=== PATIENT | female | born 1965 | race Caucasian/White ===

== ENCOUNTER 2016-11-19 14:11 | Emergency (ER) | payer OTHER ==
[~2016-11-19] VITALS: Ht 157.5 cm; Wt 56.0 kg
[~2016-11-19 14:11] MED LIST: ASPI81TA3 PO; CALC-176 PO; CETI-240 PO; CIPR500T4 PO; GLIM4TAB PO; HYDR-3498 PO; LEVO25TA59 PO; MTF1000T PO; OMEG-135 PO; PIOG45TA6 PO; SERT25TA83 PO; SIMV40TA2 PO
[2016-11-19 14:25] VITALS: Ht 157.5 cm; Wt 56.0 kg
[2016-11-19] MEDS ORDERED: IBUPROFEN 200 MG TAB PO ONE (16:30)
[2016-11-19] MEDS ORDERED: HYDROCODONE/APAP (5/325) TAB PO ONE (16:30)
--- NOTE | 2016-11-19 17:16 | RADRPT ---
PROCEDURE: XR Elbow. CLINICAL INDICATION: Pain. TECHNIQUE: Three views of the right elbow. COMPARISON: None available. FINDINGS: The anterior fat pad is visible, but not elevated. The posterior fat pad is not seen. The anterior humeral and radiocapitellar lines are normal. No fracture or dislocation is identified. The joint spaces are preserved. There is no significant soft tissue swelling. IMPRESSION: 1. No fracture or dislocation of the right elbow. RPTAT: HTAR .Aknit Ricketts MD, Date Time Electronically viewed and signed by .Ankit Ricketts MD, on 11/19/2016 17:16 .R/
--- NOTE | 2016-11-19 17:16 | RADRPT ---
PROCEDURE: XR Elbow. CLINICAL INDICATION: Pain. TECHNIQUE: Three views of the left elbow. COMPARISON: None available. FINDINGS: The anterior fat pad is visible, but not elevated. The posterior fat pad is not seen. The anterior humeral and radiocapitellar lines are normal. No fracture or dislocation is identified. The joint spaces are preserved. There is no significant soft tissue swelling. IMPRESSION: 1. No fracture or dislocation of the left elbow. RPTAT: HTAR .Ankit Ricketts MD, Date Time Electronically viewed and signed by .Ankit Ricketts MD, on 11/19/2016 17:15 .R/
--- NOTE | 2016-11-19 17:16 | RADRPT ---
PROCEDURE: Lumbar Spine. CLINICAL INDICATION: Back pain. TECHNIQUE: Three views of the lumbar spine. COMPARISON: None available FINDINGS: There is mild rightward curvature of the spine. The lumbar lordosis is preserved without spondyloli sthesis. The vertebral body heights are maintained. No acute fracture or subluxation is seen. There is mild degenerative disk disease at L5-S1. IMPRESSION: 1. No acute fracture or subluxation. RPTAT: HTAR .Ankit Ricketts MD, MD Date Time Electronically viewed and signed by .Ankit Ricketts MD, on 11/19/2016 17:15 .R/
[2016-11-19 17:38] LABS: URINE BLOOD (Dip) POC Trace-intact (NEGATIVE)
[2016-11-19] MEDS ORDERED: ACET1TAB40 PO (17:48)
[2016-11-19] MEDS ORDERED: IBUP400T22 PO (17:48)
--- NOTE | 2016-11-19 17:53 | ERD ---
ER Documentation Chief Complaint Date/Time DATE: 11/19/16 TIME: 17:50 Chief Complaint slipped and fell from stairs right elbow swelling and pain with back pain HPI Prescription of 1 old female complains of low back pain and bilateral elbow pain after falling down stairs today. She denies any head injury loss consciousness, weakness or bowel or bladder incontinence. She states that she slipped and there was no history of syncope, chest pain or shortness of breath potential reason for fall. ROS All systems reviewed and are negative except as per history of present illness. Medications Home Meds Active Scripts Acetaminophen with Codeine (Acetaminophen-Cod #3 Tablet) 1 Each Tablet, 1 TAB PO Q6H Y for PAIN, #12 TAB Prov:CICI GUERRA MD 11/19/16 Ibuprofen* (Motrin*) 400 Mg Tab, 400 MG PO Q6, #15 TAB Prov:CICI GUERRA MD 11/19/16 Hydrocodone Bit-Acetaminophen* (Chester*) 5-325 Mg Tab, 1 TAB PO Q6 Y for PAIN, # 10 TAB Prov:RYAN LOZANO MD 08/10/15 Ciprofloxacin Hcl* (Ciprofloxacin Hcl*) 500 Mg Tablet, 500 MG PO BID for 7 Days , TAB Prov:RYAN LOZANO MD 08/10/15 Reported Medications Calcium Cmb 2-Mag Cmb 12-Vit D3 (Calcium 500) 1 Each Tablet, 1 TAB PO BID, TAB 08/10/15 Aspirin* (Aspirin* Chew) 81 Mg Tab.chew, 81 MG PO DAILY, TAB.CHEW 08/10/15 Fish Oil* (Fish Oil*) 1,000 Mg Cap, 1000 MG PO BID, CAP 08/10/15 Cetirizine Hcl* (Cetirizine Hcl*) 10 Mg Tablet, 10 MG PO DAILY, #30 TAB 08/10/15 Metformin* (Glucophage*) 1,000 Mg Tablet, 1000 MG PO BID, #60 TAB 08/10/15 Glimepiride* (Glimepiride*) 4 Mg Tablet, 4 MG PO BID, TAB 08/10/15 Pioglitazone Hcl* (Actos*) 45 Mg Tablet, 45 MG PO DAILY, #30 TAB 08/10/15 Sertraline Hcl* (Sertraline Hcl*) 25 Mg Tablet, 25 MG PO DAILY, #30 TAB 08/10/15 Simvastatin* (Zocor*) 40 Mg Tablet, 40 MG PO QHS, #30 TAB 08/10/15 Levothyroxine Sodium* (Synthroid*) 25 Mcg Tablet, 25 MCG PO BEFORE BREAKFAST, # 30 TAB 08/10/15 Allergies Allergies: Coded Allergies: No Known Allergy (Verified , 11/19/16) PMhx/Soc History of Surgery: No Anesthesia Reaction: No Hx Neurological Disorder: No Hx Respiratory Disorders: No Hx Cardiac Disorders: Yes (htn) Hx Psychiatric Problems: Yes (depresion) Hx Alcohol Use: No Hx Substance Use: No Hx Tobacco Use: No Smoking Status: Never smoker Physical Exam Vitals Vital Signs Date Time Temp Pulse Resp B/P Pulse Ox O2 Delivery O2 Flow Rate FiO2 11/19/16 14:25 98.5 97 20 155/72 100 Physical Exam Const: [] Alert, not ill-appearing. Head: Atraumatic Eyes: Normal Conjunctiva ENT: Normal External Ears, Nose and Mouth. Neck: Full range of motion..~ No meningismus. Resp: Clear to auscultation bilaterally Cardio: Regular rate and rhythm, no murmurs Abd: Soft, non tender, non distended. Normal bowel sounds Skin: No petechiae or rashes Back: No midline or flank tenderness. Mild tenderness in the L4-L5 paraspinous muscles without midline tenderness or deformities. Ext: No cyanosis, or edema. There is some mild swelling in the bilateral olecranon bursa area without significant deformities and no effusion, erythema, bleeding no restricted range of motion or weakness. Neur: Awake and alert Psych: Normal Mood and Affect Results 24 hrs Laboratory Tests Test 11/19/16 17:40 Bedside Urine pH (LAB) 5.0 Bedside Urine Protein (LAB) Negative Bedside Urine Glucose (UA) 0.50% Bedside Urine Ketones (LAB) Negative Bedside Urine Blood Trace-intact Bedside Urine Nitrite (LAB) Negative Bedside Urine Leukocyte Esterase (L Negative Current Medications Medications (Trade) Dose Ordered Sig/Ronal Route PRN Reason Start Time Stop Time Status Last Admin Dose Admin Acetaminophen/ Hydrocodone Bitart ([place] (5/325)) 1 tab ONCE ONCE PO 11/19/16 16:30 11/19/16 16:31 DC 11/19/16 17:42 Ibuprofen (Motrin) 400 mg ONCE ONCE PO 11/19/16 16:30 11/19/16 16:31 DC 11/19/16 17:42 Procedures/MDM X-ray right Elbow 3V Interpreted by me: Fat Pads: Normal Bones: No fracture Joints: No dislocation Foreign body: None. Impression-normal right elbow x-ray X-ray left Elbow 3V Interpreted by me: Fat Pads: Normal Bones: No fracture Joints: No dislocation Foreign body: None. Impression-normal left elbow x-ray X-ray LS-Spine 3V Interpreted by me: Bones: No fracture, or lytic lesions Joints: No dislocation Foreign body: None. Impression normal lumbar spine x-ray Patient was given ibuprofen for pain. Since with low back pain and bilateral elbow pain after mechanical fall today down the stairs. There is no history of head injury, neck injury, neurologic deficit, additional complications or fracture dislocation. She'll treated ibuprofen and observation home in addition a short course of Tylenol No. 3. Patient is advised to follow-up with primary care doctor this week or return to the ER for new or worsening symptoms. The patient was stable with no new complaints during the ER course. Clinically, there is no current evidence to suggest meningitis, sepsis, acute abdomen, pneumonia, acute coronary syndrome, pulmonary embolism, or any other emergent condition appearing to require further evaluation or hospitalization. The patient should certainly return for any new or worsening symptoms per the aftercare instructions. They should otherwise follow-up with her primary care doctor for reevaluation this week. Departure Diagnosis: Primary Impression: Fall Encounter type: initial encounter Qualified Code: W19.XXXA - Fall, initial encounter Additional Impression: Elbow contusion Encounter type: initial encounter Laterality: unspecified laterality Qualified Code: S50.00XA - Contusion of elbow, unspecified laterality, initial encounter Condition: Stable Patient Instructions: Back Sprain/Strain, Contusion, Elbow, Fall, Mechanical Additional Instructions: X-rays normal today.Examines normal hoy. Cheque otro vez con [place] doctor primario en el proximo [place] or regresa para mas o nueva simptomas. CICI GUERRA MD November 19, 2016 17:53
[2016-11-19 19:34] VITALS: BP 124/65; PULSE 77; RESP 19; TEMP 98.2
== END 2016-11-19 19:36 | disposition home or self-care (01) ==
LOC: FTE 14:11
DX: S50.02XA Contusion of left elbow, initial encounter (principal); S50.01XA Contusion of right elbow, initial encounter; I10 Essential (primary) hypertension; W10.9XXA Fall (on) (from) unspecified stairs and steps, initial encounter; Y92.9 Unspecified place or not applicable; Z79.82 Long term (current) use of aspirin; Z79.84 Long term (current) use of oral hypoglycemic drugs
CPT/HCPCS: 72100; 73080; 81003; Z7502; Z7610